=== PATIENT | male | born 1970 | race Caucasian/White ===

== ENCOUNTER 2016-12-11 20:49 | Emergency (ER) | payer OTHER ==
[~2016-12-11] VITALS: Ht 185.4 cm; Wt 103.1 kg
[~2016-12-11 20:49] MED LIST: SERT-132 PO; TRAZ50TA12 PO
[2016-12-11 20:55] VITALS: BP 132/78; PULSE 84; RESP 14; TEMP 97.6; O2SAT 97
[2016-12-11] MEDS ORDERED: traZODone HCL 50 MG TAB PO ONE (23:00)
--- NOTE | 2016-12-12 00:27 | PD ---
Data Data Last Documented VS Vital Signs Date Time Temp Pulse Resp B/P Pulse Ox O2 Delivery O2 Flow Rate FiO2 12/11/16 20:55 97.6 84 14 132/78 97 Room Air Orders Psych Screen (12/11/16 22:04) Trazodone (Desyrel) (12/11/16 23:00) MDM Supervised Visit with [facility]: Yes Narrative Course Patient medically clear by Dr. Menendez in [place]. Psychiatric evaluation. Braden Guadarrama MD Dec 12, 2016 00:27
[2016-12-12] MEDS ORDERED: ACETAMINOPHEN 500 MG CPLT PO ONE (00:30)
[2016-12-12 05:52] VITALS: BP 113/65; PULSE 82; RESP 16
== END 2016-12-12 10:22 | disposition home or self-care (01) ==
LOC: NEDAMB 20:49 → NEPD 12-12 10:22
DX: Z02.89 Encounter for other administrative examinations (principal)
CPT/HCPCS: 80053; 80307; 81001; 84443; 85025; 93005; 96372; 99283; 99285; J1200; J2060

== ENCOUNTER 2017-04-17 16:06 | Emergency (ER) | payer OTHER ==
[~2017-04-17 16:06] MED LIST changes: +BUSP5TAB PO; +SERO25TA PO; +VIST25CA PO
[2017-04-17 16:08] VITALS: BP 144/79; PULSE 104; RESP 16; TEMP 98.9; O2SAT 96
[2017-04-17] MEDS ORDERED: BUPR100CR PO (17:24)
--- NOTE | 2017-04-17 17:30 | PD ---
HPI Chief Complaint: Anxiety Time Seen by Provider: 17:05 Travel History International Travel<30 days: No Contact w/Intl Traveler<30days: No Traveled to known affect area: No History of Present Illness HPI 47-year-old male presents emergency Department with complaint of an anxiety attack for the past few days. Has history PTSD. He isn't feeling jittery. Denies nausea or vomiting. He drove over here to see his dad's grave from [place] and started having a panic attack while trying to drive home. Reports chest pain and shortness of breath. Was last seen and worked up for chest pain 5 days ago. Says he has an appointment next week for stress test, outpatient. Reports coughing for the past 2-3 days. Denies wheezing. Denies fevers. Denies illicit drug use, tobacco use, EtOH. Denies recent surgeries, history of DVT, PE, leg edema, anticoagulant therapy. Took Advil this morning for symptom management. Says he does not have any more Ativan for his anxiety. Denies suicidal or homicidal ideations. Denies hallucinations. Denies history of suicidal attempts. [facility] provider [facility]. No known allergies. Denies significant past medical history. Has no other medical complaints. No other modifying factors or associated signs and symptoms. PFSH Past Medical History Anxiety: Yes Depression: Yes Diminished Hearing: No Social History Alcohol Use: No Tobacco Use: No Substance Use: No Allergies-Medications (Allergen,Severity, Reaction): Coded Allergies: No Known Allergies (Unverified , 02/27/17) Reported Meds & Prescriptions Reported Meds & Active Scripts Active Vistaril (Hydroxyzine Pamoate) 25 Mg Cap 25 Mg PO TID PRN Reported Wellbutrin SR 12 HR (Bupropion HCl) 100 Mg Tab 100 Mg PO Q12HR Buspirone (Buspirone HCl) 5 Mg Tab 5 Mg PO BID Trazodone (Trazodone HCl) 50 Mg Tab 50 Mg PO HS Review of Systems Except as stated in HPI: all other systems reviewed are Neg Physical Exam Narrative GENERAL: Well-nourished, well-developed male patient, in no acute distress; anxious appearing SKIN: Warm and dry. HEAD: Atraumatic. Normocephalic. EYES: Pupils equal and round. ENT: Mucosa pink and moist. NECK: Supple. Trachea midline. CARDIOVASCULAR: Regular rate and rhythm. No murmur appreciated. RESPIRATORY: No accessory muscle use. Clear to auscultation. Breath sounds equal bilaterally. GASTROINTESTINAL: Abdomen soft, non-tender, nondistended. Hepatic and splenic margins not palpable. Bowel sounds are active 4 quadrants. MUSCULOSKELETAL: No obvious deformities. No clubbing. No cyanosis. No edema. NEUROLOGICAL: Awake and alert. Oriented 3. No obvious cranial nerve deficits. Motor grossly within normal limits. Normal speech. Moves all extremities. 5/5 strength to all extremities. PSYCHIATRIC: No delusional thought processes. No hallucinations. Data Data Last Documented VS Vital Signs Date Time Temp Pulse Resp B/P (MAP) Pulse Ox O2 Delivery O2 Flow Rate FiO2 04/17/17 16:08 98.9 104 16 144/79 (100) 96 Orders Orders Electrocardiogram (04/17/17 17:30) Chest, Single Ap (04/17/17 17:30) Blood Glucose (04/17/17 17:30) Hydroxyzine Pamoate (Vistaril) (04/17/17 17:30) Ed Discharge Order (04/17/17 18:26) [facility] Medical Decision Making Medical Screen Exam Complete: Yes Emergency Medical Condition: Yes Medical Record Reviewed: Yes Differential Diagnosis Panic attack, anxiety, depression, malingering, benzodiazepine seeking Narrative Course 47-year-old male with history of anxiety and PTSD. Complaining of chest pain and shortness of breath. The patient was seen 5 days ago and worked up for chest pain, per the patient. He has an appointment next week for a stress test with the [facility]. He took his last Ativan this morning. PERC negative and no risk of PE. I discussed the patient with Dr. Santiago, my attending physician, and he agrees with my plan of care. EKG, chest x-ray, bedside glucose ordered. 1756: EKG was sinus tachycardia without ST elevation or depression; reviewed by Dr. Santiago. Chest x-ray concludes: Chest X-Ray 04/17/17 173 Signed Impressions: Service Date/Time: Monday, April 17, 2017 17:38 - CONCLUSION: Faint opacity left base characteristic of early airspace disease. No other significant abnormality. Cooper Baez MD Chest x-ray findings discussed with the patient. Bedside glucose 89. Vistaril administered in the ER. His heart patient to follow up with primary care provider or psychiatrist. Vistaril prescribed for home. Instructed patient to follow up with primary care provider. Patient verbalizes understanding and agreement with treatment plan. Patient is medically cleared and stable for discharge. Discussed reasons to return to the emergency department. Patient agrees with treatment plan. The patients vital signs are stable and the patient is stable for outpatient follow-up and treatment. Patient discharged home, stable and in no acute distress. Diagnosis Primary Impression: Anxiety Referrals: Primary Care Physician Psychiatrist Patient Instructions: Anxiety (ED), General Instructions Additional Instructions: Follow-up with psychiatrist Follow-up with primary care provider Med/Other Pt SpecificInfo: Prescription(s) given Scripts Hydroxyzine Pamoate (Vistaril) 25 Mg Cap 25 MG PO TID Y for ANXIETY, #15 CAP 0 Refills Prov: Danay Mccann 04/17/17 Disposition: 01 DISCHARGE HOME Condition: Stable Danay Mccann Apr 17, 2017 17:30
--- NOTE | 2017-04-17 17:49 | RADRPT ---
EXAM DATE/TIME: 04/17/2017 17:38 [facility] COMPARISON: No previous studies available for comparison. INDICATIONS : Cough for 3 days, chest pain at mid chest when coughing. MEDICAL HISTORY : None. SURGICAL HISTORY : None. ENCOUNTER: Initial ACUITY: 3 days PAIN SCORE: 3/10 LOCATION: Bilateral chest FINDINGS: Small patchy opacity is identified overlying the cardiac silhouette. Lungs are hypoaerated. Heart and mediastinal structures appear normal. CONCLUSION: Faint opacity left base characteristic of early airspace disease. No other significant abnormality. Cooper Baez MD on April 17, 2017 at 17:45 Board Certified Radiologist. This report was verified electronically.
[2017-04-17] MEDS ORDERED: VIST25CA PO (18:26)
[2017-04-17 18:32] VITALS: BP 148/87
--- NOTE | 2017-04-18 15:47 | EKG ---
Date Performed: 04/17/2017 Time Performed: 17:48:03 PTAGE: 47 years EKG: SINUS TACHYCARDIA ABNORMAL RHYTHM ECG NO PREVIOUS TRACING DOCTOR: Braden Mcqueen Interpretating Date/Time 04/18/2017 15:47:01
== END 2017-04-17 18:33 | disposition home or self-care (01) ==
LOC: NEPD 16:06
DX: F41.9 Anxiety disorder, unspecified (principal); R06.02 Shortness of breath; R07.9 Chest pain, unspecified; R05 Cough; R94.31 Abnormal electrocardiogram [ECG] [EKG]
CPT/HCPCS: 71010; 93005; 99284